=== PATIENT | female | born 1995 | race Caucasian/White ===

== ENCOUNTER 2017-11-30 21:41 | Inpatient (IN) | payer OTHER ==
[2017-11-30] MEDS ORDERED: LACTATED RINGER'S 1,000 ML IV (22:44)
[2017-11-30] MEDS ORDERED: IBUPROFEN 600 MG TAB PO (23:00)
[2017-11-30] MEDS ORDERED: MISOPROSTOL 200 MCG TAB PR (23:00)
[2017-11-30] MEDS ORDERED: OXYTOCIN 30 UNITS/LR 500 ML IV ×3 (23:00)
[2017-11-30] MEDS ORDERED: METHYLERGONOVINE 0.2 MG INJ IM (23:00)
[2017-11-30] MEDS ORDERED: CARBOPROST 250 MCG INJ IM (23:00)
[2017-11-30] MEDS ORDERED: LIDOCAINE 1% (MPF) 30 ML INJ INJ (23:00)
[2017-11-30] MEDS ORDERED: BUTORPHANOL 2 MG INJ IV (23:00)
[2017-12-01] MEDS: LACTATED RINGER'S 1,000 ML IV ×2 (00:06→12:39)
[2017-12-01] MEDS: AMPICILLIN 2 GM/NS (PMX) 100 ML IV (00:06)
[2017-12-01 00:28] LABS: ADD MAN DIFF? NO
[2017-12-01 00:30] LABS: BASOPHILS % 0.2 % (0.0-2.0); EOSINOPHILS # 0.2 10^3/ul (0.0-0.5); EOSINOPHILS % 1.4 % (0.0-7.0); HEMATOCRIT 27.8 % (37.0-47.0); HEMOGLOBIN 8.8 g/dl (12.0-16.0); LYMPHOCYTES # 0.8 10^3/ul (0.8-2.9); LYMPHOCYTES % 7.6 % (18.0-55.0); MEAN CORPUSCULAR HEMOGLOBIN 25.9 pg (29.0-33.0); MEAN CORPUSCULAR HGB CONC 31.7 g/dl (32.0-37.0); MEAN CORPUSCULAR VOLUME 81.8 fl (72.0-104.0); MEAN PLATELET VOLUME 9.5 fl (7.4-10.4); MONOCYTE # 0.6 10^3/ul (0.3-0.9); MONOCYTES % 5.4 % (0.0-13.0); NEUTROPHIL # 9.4 10^3/ul (1.6-7.5); NEUTROPHILS % 84.9 % (30.0-74.0); PLATELET COUNT 363 10^3/UL (140-415); RED CELL DISTRIBUTION WIDTH 13.9 % (11.5-14.5)
[2017-12-01] MEDS: LACTATED RINGER'S 500 ML IV ×2 (00:34→02:44)
[2017-12-01 01:22] LABS: HEPATITIS B SURFACE ANTIGEN NEGATIVE (NEGATIVE)
[2017-12-01 01:44] LABS: INR 0.88; PT RATIO 0.9
[2017-12-01 01:45] LABS: PARTIAL THROMBOPLASTIN TIME 28.1 Sec (25.0-35.0)
[2017-12-01] MEDS: AMPICILLIN 1 GM/NS (PMX) 50 ML IV ×4 (03:37→16:58)
[2017-12-01 04:17] LABS: AMPHETAMINE/METHAMPHETAMINE Negative (NEGATIVE); BARBITURATES Negative (NEGATIVE); BENZODIAZEPINES Negative (NEGATIVE); CANNABINOIDS Negative (NEGATIVE); COCAINE Negative (NEGATIVE)
[2017-12-01 04:20] LABS: OPIATES Negative (NEGATIVE)
[2017-12-01] MEDS ORDERED: DEXTROSE 5%-LR 1,000 ML IV (09:30)
[2017-12-01 14:43] LABS: RAPID PLASMA REAGIN NONREACTIVE (NR)
== END 2017-12-01 21:51 | disposition home or self-care (01) | DRG 782 ==
LOC: OBT 21:41 → L-D 21:43 → OBT 22:40 → L-D 22:40
PROVIDERS: Obstetrics & Gynecology
DX: O36.8130 Decreased fetal movements, third trimester, not applicable or unspecified (principal); Z3A.38 38 weeks gestation of pregnancy
CPT/HCPCS: 76815; 76818; 80307; 85025; 85610; 85730; 86592; 86900; 86901; 87340

== ENCOUNTER 2017-12-09 01:44 | Inpatient (IN) | payer OTHER ==
[2017-12-09] MEDS ORDERED: LACTATED RINGER'S 1,000 ML IV (03:07)
[2017-12-09] MEDS ORDERED: METHYLERGONOVINE 0.2 MG INJ IM ×2 (03:30→14:30)
[2017-12-09] MEDS ORDERED: CARBOPROST 250 MCG INJ IM ×2 (03:30→14:30)
[2017-12-09] MEDS ORDERED: MISOPROSTOL 200 MCG TAB PR ×2 (03:30→14:30)
[2017-12-09] MEDS ORDERED: OXYTOCIN 30 UNITS/LR 500 ML IV ×3 (03:30→14:30)
[2017-12-09] MEDS ORDERED: IBUPROFEN 600 MG TAB PO (03:30)
[2017-12-09 03:46] LABS: ADD MAN DIFF? NO
[2017-12-09 04:04] LABS: BASOPHILS % 0.2 % (0.0-2.0); EOSINOPHILS # 0.1 10^3/ul (0.0-0.5); EOSINOPHILS % 1.2 % (0.0-7.0); HEMATOCRIT 26.9 % (37.0-47.0); HEMOGLOBIN 8.4 g/dl (12.0-16.0); LYMPHOCYTES # 1.2 10^3/ul (0.8-2.9); MEAN CORPUSCULAR HEMOGLOBIN 25.5 pg (29.0-33.0); MEAN CORPUSCULAR HGB CONC 31.2 g/dl (32.0-37.0); MEAN CORPUSCULAR VOLUME 81.5 fl (72.0-104.0); MEAN PLATELET VOLUME 9.6 fl (7.4-10.4); MONOCYTE # 0.7 10^3/ul (0.3-0.9); MONOCYTES % 6.8 % (0.0-13.0); NEUTROPHIL # 8.2 10^3/ul (1.6-7.5); NEUTROPHILS % 78.8 % (30.0-74.0); PLATELET COUNT 354 10^3/UL (140-415); RED CELL DISTRIBUTION WIDTH 14.4 % (11.5-14.5)
[2017-12-09 04:04] LABS: WHITE BLOOD COUNT 10.4 10^3/ul (4.8-10.8)
[2017-12-09 04:22] LABS: INR 0.92; PROTIME 12.4 Sec (11.9-14.9)
[2017-12-09 04:23] LABS: PARTIAL THROMBOPLASTIN TIME 28.2 Sec (25.0-35.0)
[2017-12-09] MEDS ORDERED: AMPICILLIN 2 GM/NS (PMX) 100 ML (07:26)
[2017-12-09] MEDS: AMPICILLIN 2 GM/NS (PMX) 100 ML IV (07:35)
[2017-12-09] MEDS: OXYTOCIN 30 UNITS/LR 500 ML IV ×2 (07:57→12:18)
[2017-12-09] MEDS: LACTATED RINGER'S 1,000 ML IV ×2 (08:00→10:12)
[2017-12-09] MEDS: BUTORPHANOL 2 MG INJ IV (08:49)
[2017-12-09 09:01] LABS: AMPHETAMINE/METHAMPHETAMINE Negative (NEGATIVE); BARBITURATES Negative (NEGATIVE); BENZODIAZEPINES Negative (NEGATIVE); CANNABINOIDS Negative (NEGATIVE); COCAINE Negative (NEGATIVE); OPIATES Negative (NEGATIVE)
[2017-12-09] MEDS: LIDOCAINE 1% (MPF) 30 ML INJ INJ (11:29)
[2017-12-09] MEDS ORDERED: AMPICILLIN 1 GM/NS (PMX) 50 ML IV (11:30)
[2017-12-09] MEDS ORDERED: ZOLPIDEM 5 MG TAB PO (14:30)
[2017-12-09] MEDS ORDERED: SENNA/DOCUSATE NA (8.6MG/50MG) TAB PO (14:30)
[2017-12-09] MEDS ORDERED: OXYCODONE/ASPIRIN (4.88/325) TAB PO (14:30)
[2017-12-09] MEDS: WITCH HAZEL/GLYCERIN PAD PR (17:04)
[2017-12-09] MEDS: BENZOCAINE 20% 56 ML SPRAY TOP (17:04)
[2017-12-09] MEDS: IBUPROFEN 600 MG TAB PO ×2 (17:27→23:31)
[2017-12-09] MEDS: LANOLIN 7 GM TUBE TOP (21:00)
[2017-12-09] MEDS: SENNA/DOCUSATE NA (8.6MG/50MG) TAB PO (21:00)
[2017-12-09 22:02] LABS: RAPID PLASMA REAGIN NONREACTIVE (NR)
[2017-12-10] MEDS: IBUPROFEN 600 MG TAB PO ×4 (05:43→23:41)
[2017-12-10 09:13] LABS: ADD MAN DIFF? NO
[2017-12-10 09:16] LABS: BASOPHILS % 0.2 % (0.0-2.0); EOSINOPHILS # 0.1 10^3/ul (0.0-0.5); HEMATOCRIT 24.4 % (37.0-47.0); HEMOGLOBIN 7.5 g/dl (12.0-16.0); LYMPHOCYTES # 1.6 10^3/ul (0.8-2.9); LYMPHOCYTES % 13.6 % (18.0-55.0); MEAN CORPUSCULAR HEMOGLOBIN 24.8 pg (29.0-33.0); MEAN CORPUSCULAR HGB CONC 30.7 g/dl (32.0-37.0); MEAN CORPUSCULAR VOLUME 80.8 fl (72.0-104.0); MEAN PLATELET VOLUME 9.8 fl (7.4-10.4); MONOCYTE # 0.8 10^3/ul (0.3-0.9); MONOCYTES % 6.4 % (0.0-13.0); NEUTROPHIL # 9.4 10^3/ul (1.6-7.5); NEUTROPHILS % 78.4 % (30.0-74.0); PLATELET COUNT 305 10^3/UL (140-415); RED BLOOD COUNT 3.02 10^6/ul (4.20-5.40); RED CELL DISTRIBUTION WIDTH 14.4 % (11.5-14.5)
[2017-12-10] MEDS: SENNA/DOCUSATE NA (8.6MG/50MG) TAB PO ×2 (09:54→21:18)
[2017-12-10] MEDS: FERROUS SULFATE (EC) 325 MG TAB PO ×2 (11:52→21:18)
[2017-12-11] MEDS: IBUPROFEN 600 MG TAB PO ×2 (05:55→11:28)
[2017-12-11 08:12] LABS: ADD MAN DIFF? NO
[2017-12-11 08:14] LABS: WHITE BLOOD COUNT 13.2 10^3/ul (4.8-10.8)
[2017-12-11 08:14] LABS: BASOPHILS % 0.2 % (0.0-2.0); EOSINOPHILS # 0.3 10^3/ul (0.0-0.5); HEMATOCRIT 29.4 % (37.0-47.0); LYMPHOCYTES # 1.9 10^3/ul (0.8-2.9); MEAN CORPUSCULAR HEMOGLOBIN 25.1 pg (29.0-33.0); MEAN CORPUSCULAR HGB CONC 30.6 g/dl (32.0-37.0); MEAN CORPUSCULAR VOLUME 81.9 fl (72.0-104.0); MEAN PLATELET VOLUME 9.8 fl (7.4-10.4); MONOCYTE # 0.7 10^3/ul (0.3-0.9); MONOCYTES % 5.2 % (0.0-13.0); NEUTROPHIL # 10.2 10^3/ul (1.6-7.5); NEUTROPHILS % 77.5 % (30.0-74.0); NUCLEATED RED BLOOD CELLS% 0.2 /100WBC (0.0-0.0); PLATELET COUNT 390 10^3/UL (140-415); RED BLOOD COUNT 3.59 10^6/ul (4.20-5.40); RED CELL DISTRIBUTION WIDTH 14.4 % (11.5-14.5)
[2017-12-11] MEDS: DIPHTH/TET/ACEL PERTUSS (ADULT) 0.5 ML VIAL IM* (08:36)
[2017-12-11] MEDS: SENNA/DOCUSATE NA (8.6MG/50MG) TAB PO (08:43)
[2017-12-11] MEDS: FERROUS SULFATE (EC) 325 MG TAB PO (08:43)
== END 2017-12-11 16:52 | disposition home or self-care (01) | DRG 775 ==
LOC: OBT 01:44 → L-D 01:45 → OBT 03:09 → L-D 03:10 → PP1 14:27
PROVIDERS: Obstetrics & Gynecology
PROC: 10E0XZZ Delivery of Products of Conception, External Approach (ICD-10-PCS; principal; 2017-12-09)
DX: O80 Encounter for full-term uncomplicated delivery (principal); Z37.0 Single live birth; Z3A.39 39 weeks gestation of pregnancy
CPT/HCPCS: 80307; 85025; 85610; 85730; 86592; 86900; 86901; 90715